=== PATIENT | male | born 1960 | race Two or more races ===

== ENCOUNTER 2017-04-15 10:46 | Outpatient (CLI) | payer OTHER | END 2017-04-15 11:10 | disposition home or self-care (01) | LOC: SONOGRAMA 10:46 | DX: E04.1 Nontoxic single thyroid nodule (principal) ==

== ENCOUNTER 2020-08-30 08:42 | Outpatient (CLI) | payer OTHER | END 2020-08-30 09:08 | disposition home or self-care (01) | LOC: SONOGRAMA 08:42 | PROVIDERS: ATTEND Pediatrics | DX: M25.519 Pain in unspecified shoulder (principal); M75.30 Calcific tendinitis of unspecified shoulder ==